=== PATIENT | male | born 1940 | race Hispanic/Latino ===

== ENCOUNTER 2024-02-23 13:03 | Outpatient (CLI) | payer MEDICARE | END 2024-02-23 13:04 | disposition home or self-care (01) | LOC: NAV RAD 13:03 | PROVIDERS: ATTEND Family Medicine | DX: J06.9 Acute upper respiratory infection, unspecified (principal); R06.2 Wheezing; J84.9 Interstitial pulmonary disease, unspecified | CPT/HCPCS: 71046 ==